=== PATIENT | female | born 1965 | race Caucasian/White ===

== ENCOUNTER → 2017-04-09 07:19 | Outpatient (CLI) | payer MEDICARE | LOC: D.RAD 01-29 09:30 → D.MRI 02-01 10:30 → D.RAD 02-05 08:30 → D.MRI 02-05 09:00 → D.RAD 02-12 08:30 | DX: S43.491A Other sprain of right shoulder joint, initial encounter (principal); X58.XXXA Exposure to other specified factors, initial encounter; Y93.89 Activity, other specified; Y92.89 Other specified places as the place of occurrence of the external cause ==

== ENCOUNTER 2018-02-10 19:11 | Emergency (ER) | payer OTHER ==
[2018-02-10 19:35] LABS: BASOPHILS 0.1 % (0-2); EOSINOPHILS 1.2 % (0-7); HEMATOCRIT 35.5 % (36.0-48.0); HEMOGLOBIN 11.6 g/dL (12-16); IMMATURE GRANULOCYTES 0.1 % (0-5); LYMPHOCYTES 20.2 % (15-50); MCH 31.9 pg (26.0-34.0); MCHC 32.7 g/dL (31.0-37.0); MCV 97.5 fL (80.0-100.0); MEAN PLATELET VOLUME 9.8 fL (7.4-10.4); MONOCYTES 8.2 % (2-11); NEUTROPHILS 70.2 % (40-80); PLATELET COUNT 190 10x3/uL (130-400); RBC 3.64 10x6/uL (4.00-5.40); RDW 13.2 % (11.5-14.5); WBC 8.1 10x3/uL (4.8-10.8)
[2018-02-10 19:59] LABS: ALBUMIN 3.7 g/dL (3.4-5.0); ALKALINE PHOSPHATASE 104 U/L (46-116); ALT (SGPT) 16 U/L (10-68); BILIRUBIN - TOTAL 0.47 mg/dL (0.2-1.3); CALC OSMOLALITY 277 mosm/kg (275-300); CALCIUM 8.6 mg/dL (8.5-10.1); CARBON DIOXIDE 23.4 mmol/L (21.0-32.0); CHLORIDE - SERUM 106 mmol/L (98-107); CREATININE - SERUM 0.8 mg/dL (0.6-1.3); GLUCOSE 91 mg/dL (74-106); POTASSIUM - SERUM 3.4 mmol/L (3.5-5.1); PROTEIN - SERUM 7.1 g/dL (6.4-8.2); SODIUM 140 mmol/L (136-145); UREA NITROGEN 11 mg/dL (7-18); eGFR NON AFRICAN AMERICAN 80 mL/min (90-120)
[2018-02-10 20:23] LABS: APPEARANCE SLT CLOUDY (CLEAR); BILIRUBIN NEGATIVE (NEGATIVE); COLOR DK YELLOW (YELLOW); GLUCOSE NEGATIVE (NEGATIVE); KETONE MODERATE mg/dL (NEGATIVE); NITRITE NEGATIVE (NEGATIVE); PROTEIN NEGATIVE (NEGATIVE); SPECIFIC GRAVITY 1.015 (1.005-1.020); UROBILINOGEN NORMAL (NORMAL)
[2018-02-10 20:31] LABS: BACTERIA FEW /hpf (NONE SEEN); MUCUS <1+ /lpf (NONE SEEN); WHITE CELLS - URINE 0-5 /hpf (0-5)
[2018-04-27] MEDS ORDERED: SYNTHROID50 MCG PO (08:53)
[2018-04-27] MEDS ORDERED: PROVIGIL200 MG PO (08:53)
[2018-04-27] MEDS ORDERED: GABAPENTIN100 MG PO (08:53)
[2018-04-27] MEDS ORDERED: IMITREX100 MG PO (08:53)
[2018-04-27] MEDS ORDERED: TENEX1 MG PO (08:54)
[2018-04-27] MEDS ORDERED: SINGULAIR10 MG PO (08:54)
[2018-04-27] MEDS ORDERED: PULMICORT180 MCG/AE INH (08:54)
[2018-04-27] MEDS ORDERED: TRAZODONE HCL150 MG PO (08:55)
[2018-04-27] MEDS ORDERED: TOPAMAX100 MG PO (08:55)
[2018-04-27] MEDS ORDERED: BUPROPION XL300 MG PO (08:55)
[2018-04-27] MEDS ORDERED: MULTIPLE VITAMI1 TA1 PO (08:56)
[2018-04-27] MEDS ORDERED: FLAXSEED OIL1000 MG PO (08:56)
[2018-04-27] MEDS ORDERED: VITAMIN E400 UNI2 PO (08:56)
[2018-04-27] MEDS ORDERED: COMBIVENT RESPIM4 GM INH (08:58)
[2018-04-28 11:11] VITALS: BMI 27.0
== END 2018-02-10 23:15 | disposition home or self-care (01) ==
LOC: D.ER 19:11
PROVIDERS: Family Medicine
DX: R10.32 Left lower quadrant pain (principal); N39.0 Urinary tract infection, site not specified; K57.90 Diverticulosis of intestine, part unspecified, without perforation or abscess without bleeding

== ENCOUNTER 2018-03-04 20:57 | Emergency (ER) | payer OTHER ==
[2018-04-27] MEDS ORDERED: PROVIGIL200 MG PO (08:53)
[2018-04-27] MEDS ORDERED: GABAPENTIN100 MG PO (08:53)
[2018-04-27] MEDS ORDERED: SYNTHROID50 MCG PO (08:53)
[2018-04-27] MEDS ORDERED: IMITREX100 MG PO (08:53)
[2018-04-27] MEDS ORDERED: TENEX1 MG PO (08:54)
[2018-04-27] MEDS ORDERED: PULMICORT180 MCG/AE INH (08:54)
[2018-04-27] MEDS ORDERED: SINGULAIR10 MG PO (08:54)
[2018-04-27] MEDS ORDERED: BUPROPION XL300 MG PO (08:55)
[2018-04-27] MEDS ORDERED: TRAZODONE HCL150 MG PO (08:55)
[2018-04-27] MEDS ORDERED: TOPAMAX100 MG PO (08:55)
[2018-04-27] MEDS ORDERED: FLAXSEED OIL1000 MG PO (08:56)
[2018-04-27] MEDS ORDERED: MULTIPLE VITAMI1 TA1 PO (08:56)
[2018-04-27] MEDS ORDERED: VITAMIN E400 UNI2 PO (08:56)
[2018-04-27] MEDS ORDERED: COMBIVENT RESPIM4 GM INH (08:58)
[2018-04-28 11:11] VITALS: BMI 27.0
== END 2018-03-05 00:41 | disposition home or self-care (01) ==
LOC: D.ER 20:57
DX: S16.1XXA Strain of muscle, fascia and tendon at neck level, initial encounter (principal); V49.9XXA Car occupant (driver) (passenger) injured in unspecified traffic accident, initial encounter; Y93.89 Activity, other specified; Y92.410 Unspecified street and highway as the place of occurrence of the external cause; S39.012A Strain of muscle, fascia and tendon of lower back, initial encounter; S00.83XA Contusion of other part of head, initial encounter

== ENCOUNTER 2018-04-03 20:31 | Emergency (ER) | payer OTHER ==
[2018-04-27] MEDS ORDERED: PROVIGIL200 MG PO (08:53)
[2018-04-27] MEDS ORDERED: SYNTHROID50 MCG PO (08:53)
[2018-04-27] MEDS ORDERED: IMITREX100 MG PO (08:53)
[2018-04-27] MEDS ORDERED: GABAPENTIN100 MG PO (08:53)
[2018-04-27] MEDS ORDERED: PULMICORT180 MCG/AE INH (08:54)
[2018-04-27] MEDS ORDERED: SINGULAIR10 MG PO (08:54)
[2018-04-27] MEDS ORDERED: TENEX1 MG PO (08:54)
[2018-04-27] MEDS ORDERED: TOPAMAX100 MG PO (08:55)
[2018-04-27] MEDS ORDERED: TRAZODONE HCL150 MG PO (08:55)
[2018-04-27] MEDS ORDERED: BUPROPION XL300 MG PO (08:55)
[2018-04-27] MEDS ORDERED: VITAMIN E400 UNI2 PO (08:56)
[2018-04-27] MEDS ORDERED: MULTIPLE VITAMI1 TA1 PO (08:56)
[2018-04-27] MEDS ORDERED: FLAXSEED OIL1000 MG PO (08:56)
[2018-04-27] MEDS ORDERED: COMBIVENT RESPIM4 GM INH (08:58)
[2018-04-28 11:11] VITALS: BMI 27.0
== END 2018-04-03 22:12 | disposition home or self-care (01) ==
LOC: D.ER 20:31
DX: S43.004A Unspecified dislocation of right shoulder joint, initial encounter (principal); W19.XXXA Unspecified fall, initial encounter; Y93.89 Activity, other specified; Y92.019 Unspecified place in single-family (private) house as the place of occurrence of the external cause

== ENCOUNTER 2018-04-03 20:41 | Emergency (ER) | payer OTHER ==
[2018-04-27] MEDS ORDERED: GABAPENTIN100 MG PO (08:53)
[2018-04-27] MEDS ORDERED: PROVIGIL200 MG PO (08:53)
[2018-04-27] MEDS ORDERED: SYNTHROID50 MCG PO (08:53)
[2018-04-27] MEDS ORDERED: IMITREX100 MG PO (08:53)
[2018-04-27] MEDS ORDERED: TENEX1 MG PO (08:54)
[2018-04-27] MEDS ORDERED: SINGULAIR10 MG PO (08:54)
[2018-04-27] MEDS ORDERED: PULMICORT180 MCG/AE INH (08:54)
[2018-04-27] MEDS ORDERED: TOPAMAX100 MG PO (08:55)
[2018-04-27] MEDS ORDERED: TRAZODONE HCL150 MG PO (08:55)
[2018-04-27] MEDS ORDERED: BUPROPION XL300 MG PO (08:55)
[2018-04-27] MEDS ORDERED: MULTIPLE VITAMI1 TA1 PO (08:56)
[2018-04-27] MEDS ORDERED: FLAXSEED OIL1000 MG PO (08:56)
[2018-04-27] MEDS ORDERED: VITAMIN E400 UNI2 PO (08:56)
[2018-04-27] MEDS ORDERED: COMBIVENT RESPIM4 GM INH (08:58)
[2018-04-28 11:11] VITALS: BMI 27.0
== END 2018-04-03 22:12 | disposition home or self-care (01) ==
LOC: D.ER 20:41
DX: S43.101A Unspecified dislocation of right acromioclavicular joint, initial encounter (principal); W01.0XXA Fall on same level from slipping, tripping and stumbling without subsequent striking against object, initial encounter; Y93.89 Activity, other specified; Y92.019 Unspecified place in single-family (private) house as the place of occurrence of the external cause

== ENCOUNTER → 2018-04-07 08:26 | Outpatient (CLI) | payer OTHER ==
[~2018-04-07 08:26] MED LIST: BUPROPION XL300 MG PO; COMBIVENT RESPIM4 GM INH; FLAXSEED OIL1000 MG PO; GABAPENTIN100 MG PO; IMITREX100 MG PO; MULTIPLE VITAMI1 TA1 PO; PERCOCET 10/3251 TA1 PO; PROVIGIL200 MG PO; PULMICORT180 MCG/AE INH; SINGULAIR10 MG PO; SYNTHROID50 MCG PO; TENEX1 MG PO; TOPAMAX100 MG PO; TRAZODONE HCL150 MG PO; VITAMIN E400 UNI2 PO
[2018-04-28 11:11] VITALS: BMI 27.0
== END | disposition home or self-care (01) ==
LOC: D.MRI 08:26
DX: M25.511 Pain in right shoulder (principal)

== ENCOUNTER 2018-04-28 10:20 | Day surgery (SDC) | payer OTHER ==
[2018-04-27 09:44] LABS: HEMATOCRIT 35.7 % (36.0-48.0); HEMOGLOBIN 11.8 g/dL (12-16); MCH 31.8 pg (26.0-34.0); MCHC 33.1 g/dL (31.0-37.0); MCV 96.2 fL (80.0-100.0); MEAN PLATELET VOLUME 9.6 fL (7.4-10.4); RBC 3.71 10x6/uL (4.00-5.40); RDW 13.7 % (11.5-14.5); WBC 5.8 10x3/uL (4.8-10.8)
[~2018-04-28] VITALS: Ht 165.1 cm; Wt 73.5 kg
--- NOTE | ~2018-04-28 | OP ---
PATIENT NAME: MARA BELLO MEDICAL RECORD: [id number] :65 LOCATION:D.OPS ADMISSION DATE: SURGEON: ROSALIA BRADLEY MD DATE OF OPERATION: 04/28/2018 PREOPERATIVE DIAGNOSES: 1. Impingement of the right shoulder. 2. SLAP lesion of the right shoulder. 3. Grade III AC separation of the right shoulder. POSTOPERATIVE DIAGNOSES: 1. Impingement of the right shoulder. 2. SLAP lesion of the right shoulder. 3. Grade III AC separation of the right shoulder. PROCEDURES: 1. Open acromioclavicular joint reconstruction. 2. Arthroscopic subacromial decompression, right shoulder. SURGEON: Rosalia Bradley MD ANESTHESIA: General. INTRAOPERATIVE COMPLICATIONS: None. SUMMARY OF PATHOLOGIC FINDINGS: Essentially, the patient did not have a SLAP lesion or rotator cuff tear, although the patient was found to have substantial type 3 acromion with excoriation of coracoacromial ligament and substantially dislocated, displaced AC joint. AC joint was fixed with the Arthrex subcoracoid and clavicular dog bone technique. OPERATIVE SUMMARY IN DETAIL: After obtaining the appropriate preoperative orthopaedic surgery consent as well as anesthetic consultation, evaluation, and clearance, the patient was brought to the operating room and placed on the operating table in supine position. After adequate general laryngeal mask airway was administered, the patient was placed in left lateral decubitus position. All pressure points were well padded to include down leg peroneal pad as well as axillary roll. The patient was held firmly to the operating table using the vacuum pack suction system. Right upper extremity and shoulder were then prepped and draped in routine sterile fashion. The arm was held in the Arthrex traction boom at 30 degrees of forward flexion, 30 degrees of abduction, and 10 pounds of traction laterally. Arthroscopy was established in the glenohumeral joint from posterior portal. Anterior portal was established in the anterior safe interval. Diagnostic arthroscopy did not show a SLAP lesion or undersurface rotator cuff tear. Attention was turned to the subacromial space. While in the subacromial space, surface tissue ablation system was set up to an accessory lateral portal to denude the undersurface of the acromion of all soft tissue elements. A 5-0 barrel bur was used for acromioplasty at the level of the acromioclavicular joint. Having completed this, an incision was made over the acromioclavicular joint. Dissection was carried around the clavicle and down to the subcoracoid recess. The cannulated drill and pin were placed through the coracoid, then passing the nitinol wire through this. The 2 tails of the dog bone were passed through the coracoid and the dog bone was seated securely under the coracoid. Second drill hole was then made to the clavicle again with cannulated drill from Arthrex. Nitinol wire was then used OPERATIVE REPORT [id number] MARA BELLO to pass these FiberTape sutures through. Distal clavicle was excised arthroscopically. A small extra amount was excised to make the AC joint seat nicely. This was then held with reduction clamps, tied down, and the AC joint seated nicely. The clamps were removed. Wound was copiously irrigated. Capsule about the AC joint was reapproximated with #2 FiberWire. This was then followed by #1 Vicryl, 2-0 Vicryl, and skin qing. Sterile dressings were applied. The patient was awakened. LMA was removed. She was taken to recovery room in stable condition. All final sponge and needle counts were correct. TRANSINT:[id number] Voice Confirmation ID: [id number] DOCUMENT ID: [id number] ROSALIA BRADLEY MD at 1737 CC: [id number] DICTATION DATE: 04/28/18 1442 ANESTHESIA TECHNICIAN: 04/28/18 1529 [id number] [place] [address]
[~2018-04-28 10:20] MED LIST changes: -PERCOCET 10/3251 TA1 PO
[2018-04-28 11:11] VITALS: BP 108/61; Ht 165.1 cm; Wt 73.5 kg
[2018-04-28] MEDS ORDERED: PERCOCET 10/3251 TA1 PO (14:36)
== END 2018-04-28 17:05 | disposition home or self-care (01) ==
LOC: D.OPS 10:20 → D.PAN 13:00 → D.OPS 13:00
PROVIDERS: Anesthesiology
DX: M75.41 Impingement syndrome of right shoulder (principal); S43.101A Unspecified dislocation of right acromioclavicular joint, initial encounter; Z01.812 Encounter for preprocedural laboratory examination

== ENCOUNTER 2018-06-27 18:45 | Emergency (ER) | payer OTHER ==
[~2018-06-27] VITALS: Ht 165.1 cm; Wt 68.2 kg
[~2018-06-27 18:45] MED LIST changes: +PERCOCET 10/3251 TA1 PO
[2018-06-27 18:50] VITALS: Ht 165.1 cm; Wt 68.2 kg
[2018-06-27] MEDS ORDERED: [UNRECOGNIZED DRUG - OTHER] (18:52)
[2018-06-27 19:19] LABS: BASOPHILS 0.3 % (0-2); EOSINOPHILS 1.7 % (0-7); HEMATOCRIT 35.7 % (36.0-48.0); HEMOGLOBIN 11.6 g/dL (12-16); LYMPHOCYTES 36.3 % (15-50); MCH 31.6 pg (26.0-34.0); MCHC 32.5 g/dL (31.0-37.0); MCV 97.3 fL (80.0-100.0); MEAN PLATELET VOLUME 10.5 fL (7.4-10.4); NEUTROPHILS 53.7 % (40-80); PLATELET COUNT 204 10x3/uL (130-400); RBC 3.67 10x6/uL (4.00-5.40); RDW 13.5 % (11.5-14.5)
[2018-06-27 19:28] LABS: APPEARANCE HAZY (CLEAR); BACTERIA FEW /hpf (NONE SEEN); BILIRUBIN NEGATIVE (NEGATIVE); COLOR DK YELLOW (YELLOW); GLUCOSE NEGATIVE (NEGATIVE); KETONE NEGATIVE (NEGATIVE); MUCUS >1+ /lpf (NONE SEEN); NITRITE NEGATIVE (NEGATIVE); PROTEIN NEGATIVE (NEGATIVE); RED CELLS - URINE 25-50 /hpf (0-5); UROBILINOGEN NORMAL (NORMAL); WHITE CELLS - URINE 0-5 /hpf (0-5)
[2018-06-27 19:34] LABS: ALBUMIN 3.5 g/dL (3.4-5.0); ALKALINE PHOSPHATASE 92 U/L (46-116); ALT (SGPT) 18 U/L (10-68); BILIRUBIN - TOTAL 0.45 mg/dL (0.2-1.3); CALC OSMOLALITY 278 mosm/kg (275-300); CALCIUM 8.6 mg/dL (8.5-10.1); CARBON DIOXIDE 26.2 mmol/L (21.0-32.0); CHLORIDE - SERUM 109 mmol/L (98-107); CREATININE - SERUM 0.7 mg/dL (0.6-1.3); GLUCOSE 97 mg/dL (74-106); PROTEIN - SERUM 6.7 g/dL (6.4-8.2); SODIUM 141 mmol/L (136-145); UREA NITROGEN 8 mg/dL (7-18); eGFR NON AFRICAN AMERICAN > 90 mL/min (90-120)
[2018-06-27] MEDS ORDERED: LEVSIN/ANASP0.125 MG PO (23:21)
[2018-06-28 00:02] VITALS: BP 124/72
== END 2018-06-27 23:48 | disposition home or self-care (01) ==
LOC: D.ER 18:45
PROVIDERS: Family Medicine
DX: R10.32 Left lower quadrant pain (principal); R31.9 Hematuria, unspecified

== ENCOUNTER 2018-06-30 10:20 | Emergency (ER) | payer OTHER ==
[~2018-06-30] VITALS: Ht 165.1 cm; Wt 68.0 kg
[~2018-06-30 10:20] MED LIST changes: +LEVSIN/ANASP0.125 MG PO; +[UNRECOGNIZED DRUG - OTHER]
[2018-06-30 10:24] VITALS: Ht 165.1 cm; Wt 68.0 kg
[2018-06-30 11:03] LABS: BASOPHILS 0.1 % (0-2); EOSINOPHILS 0.4 % (0-7); HEMATOCRIT 36.9 % (36.0-48.0); HEMOGLOBIN 12.1 g/dL (12-16); IMMATURE GRANULOCYTES 0.2 % (0-5); LYMPHOCYTES 11.5 % (15-50); MCH 31.9 pg (26.0-34.0); MCHC 32.8 g/dL (31.0-37.0); MCV 97.4 fL (80.0-100.0); MEAN PLATELET VOLUME 10.7 fL (7.4-10.4); MONOCYTES 7.4 % (2-11); NEUTROPHILS 80.4 % (40-80); PLATELET COUNT 204 10x3/uL (130-400); RBC 3.79 10x6/uL (4.00-5.40); RDW 13.5 % (11.5-14.5); WBC 10.2 10x3/uL (4.8-10.8)
[2018-06-30 11:12] LABS: COLOR ORANGE RED (YELLOW)
[2018-06-30 11:13] LABS: AMORPHOUS SEDIMENT <1+ /lpf (NONE SEEN); APPEARANCE HAZY (CLEAR); BACTERIA FEW /hpf (NONE SEEN); EPITHELIAL CELLS 0-5 /hpf (0-5); MUCUS >1+ /lpf (NONE SEEN); URIC ACID CRYSTALS OCC /hpf (NONE SEEN); WHITE CELLS - URINE OCC /hpf (0-5)
[2018-06-30 11:26] LABS: ALBUMIN 3.6 g/dL (3.4-5.0); ALKALINE PHOSPHATASE 90 U/L (46-116); ALT (SGPT) 20 U/L (10-68); AMYLASE - SERUM 30 U/L (25-115); BILIRUBIN - TOTAL 0.38 mg/dL (0.2-1.3); CALC OSMOLALITY 285 mosm/kg (275-300); CALCIUM 8.6 mg/dL (8.5-10.1); CARBON DIOXIDE 28.3 mmol/L (21.0-32.0); CHLORIDE - SERUM 109 mmol/L (98-107); CREATININE - SERUM 0.8 mg/dL (0.6-1.3); GLUCOSE 102 mg/dL (74-106); LIPASE 79 U/L (73-393); POTASSIUM - SERUM 3.3 mmol/L (3.5-5.1); PROTEIN - SERUM 6.8 g/dL (6.4-8.2); SODIUM 144 mmol/L (136-145); UREA NITROGEN 10 mg/dL (7-18); eGFR NON AFRICAN AMERICAN 79 mL/min (90-120)
[2018-06-30] MEDS ORDERED: FLOMAX0.4 MG PO (14:13)
[2018-06-30] MEDS ORDERED: TALWIN NX1 TAB PO (14:13)
[2018-06-30 15:02] VITALS: BP 118/57
== END 2018-06-30 15:03 | disposition home or self-care (01) ==
LOC: D.ER 10:20
PROVIDERS: Family Medicine
DX: R10.32 Left lower quadrant pain (principal); R11.2 Nausea with vomiting, unspecified; E07.9 Disorder of thyroid, unspecified

== ENCOUNTER → 2018-07-13 11:18 | Outpatient (CLI) | payer OTHER ==
[2018-06-30 10:24] VITALS: BMI 25.0
[~2018-07-13 11:18] MED LIST changes: +FLOMAX0.4 MG PO; +TALWIN NX1 TAB PO
== END | disposition home or self-care (01) ==
LOC: D.CT 11:18
DX: M25.511 Pain in right shoulder (principal); N20.0 Calculus of kidney

== ENCOUNTER → 2018-12-06 08:03 | Outpatient (CLI) | payer OTHER ==
[2018-06-30 10:24] VITALS: BMI 25.0
== END | disposition home or self-care (01) ==
LOC: D.MRI 08:00
DX: M25.511 Pain in right shoulder (principal)

== ENCOUNTER → 2019-07-06 07:38 | Outpatient (CLI) | payer OTHER ==
[2018-06-30 10:24] VITALS: BMI 25.0
== END | disposition home or self-care (01) ==
LOC: D.MRI 07:38
PROVIDERS: ATTEND Orthopaedic Surgery
DX: M87.851 Other osteonecrosis, right femur (principal); M87.052 Idiopathic aseptic necrosis of left femur

== ENCOUNTER 2019-12-21 10:10 | Day surgery (SDC) | payer OTHER ==
[2019-12-20 08:48] LABS: HEMATOCRIT 38.1 % (36.0-48.0); HEMOGLOBIN 12.3 g/dL (12-16); MCH 31.7 pg (26.0-34.0); MCHC 32.3 g/dL (31.0-37.0); MCV 98.2 fL (80.0-100.0); MEAN PLATELET VOLUME 9.3 fL (7.4-10.4); RBC 3.88 10x6/uL (4.00-5.40); RDW 13.1 % (11.5-14.5); WBC 5.1 10x3/uL (4.8-10.8)
[~2019-12-21] VITALS: Ht 165.1 cm; Wt 72.6 kg
[~2019-12-21 10:10] MED LIST changes: +EMGALITY SO
[2019-12-21 10:32] VITALS: BP 102/58; Ht 165.1 cm; Wt 72.6 kg
[2019-12-21] MEDS ORDERED: HYDROCODON-ACE1 EA10 PO (11:52)
--- NOTE | 2019-12-21 13:31 | NUR ---
PT ATTEMPTED OVERDOSE 19 YEARS AGO PRIOR TO GETTING ON CORRECT ANTIDEPRESSANT MEDICATIONS. PT DENIES SI AND IS TAKING HER MEDICATIONS. PT IS A LOW RISK PER ASSESSMENT. RESOURCES GIVEN AND PT VERBALIZED UNDERSTANDING.
--- NOTE | 2019-12-21 16:26 | NUR ---
1418 IV DC'D. CATHETER TIP INTACT. NO BLEEDING AT SITE. BANDAID APPLIED.
--- NOTE | 2019-12-24 10:02 | OP ---
PATIENT NAME: MARA BELLO MEDICAL RECORD: [id number] :65 LOCATION:D.OPS ADMISSION DATE: SURGEON: ROSALIA BRADLEY MD DATE OF OPERATION: 12/21/2019 PREOPERATIVE DIAGNOSIS: Painful hardware of the right shoulder - acromioclavicular joint reconstruction button from Arthrex. POSTOPERATIVE DIAGNOSIS: Painful hardware of the right shoulder - acromioclavicular joint reconstruction button from Arthrex. PROCEDURE: Removal of painful hardware, right shoulder - clavicle. SURGEON: Rosalia Bradley MD ANESTHESIA: General. LENS BLOCK GAUGER: CHERELLE Johns. INTRAOPERATIVE COMPLICATIONS: None. SUMMARY OF PATHOLOGIC FINDINGS: As was expected, this is an implant that has been in for about 18 months and it was very irritating this thin lady across her clavicle including the knot stack as well as the button. These were removed. OPERATIVE SUMMARY IN DETAIL: After obtaining the appropriate preoperative orthopedic surgery consent as well as anesthetic consultation, evaluation and clearance, the patient was brought to the operating room and placed on the operating table in supine position. After adequate general laryngeal mask airway was administered, the patient's right clavicle and shoulder area were prepped and draped in routine sterile fashion after the appropriate timeout was taken and agreed upon by all. A small incision was made and taken directly down to the knot stack, which was cut off sharply with a scalpel and then the dog bone was easily removed with a small rongeur. A small bony prominence was smoothened down likewise. The wound was then irrigated and closed with 2-0 Vicryl followed by 4-0 Prolene. The area was locally infiltrated with 0.25% Marcaine plain. Sterile dressings were applied. The patient was awakened and taken to recovery room in stable condition. All final needle and sponge count was correct. TRANSINT:[id number] Voice Confirmation ID: [id number] DOCUMENT ID: [id number] KIRK SORENSON, ROSALIA VARGAS at 1002 CC: [id number] DICTATION DATE: 12/21/19 1159 KENNEL TECHNICIAN: 12/21/19 1552 [facility] 12/21/19 [place] [address]
== END 2019-12-21 14:29 | disposition home or self-care (01) ==
LOC: D.OPS 10:10 → D.PAN 10:45 → D.OPS 10:45
PROVIDERS: Anesthesiology; ATTEND Orthopaedic Surgery
DX: M25.511 Pain in right shoulder (principal); M20.11 Hallux valgus (acquired), right foot; M25.551 Pain in right hip; M25.552 Pain in left hip; Z97.8 Presence of other specified devices

== ENCOUNTER 2020-07-03 08:06 | Emergency (ER) | payer OTHER ==
[~2020-07-03] VITALS: Ht 165.1 cm; Wt 72.7 kg
[~2020-07-03 08:06] MED LIST changes: +HYDROCODON-ACE1 EA10 PO
[2020-07-03 08:15] VITALS: BP 109/63; Ht 165.1 cm; Wt 72.7 kg
[2020-07-03] MEDS ORDERED: MYCOSTATIN500000 UNI PO (08:41)
[2020-07-03] MEDS ORDERED: AUGMENTIN 875-11 TAB PO (08:41)
== END 2020-07-03 09:52 | disposition home or self-care (01) ==
LOC: D.ER 08:06
DX: S61.432A Puncture wound without foreign body of left hand, initial encounter (principal); E07.9 Disorder of thyroid, unspecified; J45.909 Unspecified asthma, uncomplicated; W22.8XXA Striking against or struck by other objects, initial encounter; Y93.9 Activity, unspecified; Y92.9 Unspecified place or not applicable

== ENCOUNTER 2020-09-18 10:58 | Emergency (ER) | payer OTHER ==
[~2020-09-18] VITALS: Ht 165.1 cm; Wt 72.7 kg
[~2020-09-18 10:58] MED LIST changes: +AUGMENTIN 875-11 TAB PO; +MYCOSTATIN500000 UNI PO
[2020-09-18 11:02] VITALS: Ht 165.1 cm; Wt 72.7 kg
[2020-09-18 11:36] LABS: BASOPHILS 0.4 % (0-2); EOSINOPHILS 2.7 % (0-7); HEMATOCRIT 36.8 % (36.0-48.0); HEMOGLOBIN 12.1 g/dL (12-16); LYMPHOCYTES 35.9 % (15-50); MCH 31.5 pg (26.0-34.0); MCHC 32.9 g/dL (31.0-37.0); MCV 95.8 fL (80.0-100.0); MEAN PLATELET VOLUME 9.1 fL (7.4-10.4); MONOCYTES 10.7 % (2-11); NEUTROPHILS 50.3 % (40-80); PLATELET COUNT 196 10x3/uL (130-400); RBC 3.84 10x6/uL (4.00-5.40); RDW 12.8 % (11.5-14.5); WBC 4.8 10x3/uL (4.8-10.8)
[2020-09-18 11:48] LABS: APTT 29.9 SECONDS (22.8-39.4); INR 1.03 (0.85-1.17); PROTIME 13.5 SECONDS (11.6-15.0)
[2020-09-18 11:49] LABS: D-DIMER-QUANTITATIVE 0.35 ug/mLFEU (0.20-0.54)
[2020-09-18 11:53] LABS: CALC OSMOLALITY 278 mosm/kg (275-300); CALCIUM 8.3 mg/dL (8.5-10.1); CARBON DIOXIDE 29.3 mmol/L (21.0-32.0); CHLORIDE - SERUM 107 mmol/L (98-107); CREATININE - SERUM 0.7 mg/dL (0.6-1.3); GLUCOSE 95 mg/dL (74-106); POTASSIUM - SERUM 3.8 mmol/L (3.5-5.1); SODIUM 139 mmol/L (136-145); UREA NITROGEN 16 mg/dL (7-18); eGFR NON AFRICAN AMERICAN > 90 mL/min (90-120)
[2020-09-18 12:00] LABS: ALBUMIN 3.4 g/dL (3.4-5.0); ALKALINE PHOSPHATASE 112 U/L (30-120); ALT (SGPT) 21 U/L (10-68); BILIRUBIN - TOTAL 0.25 mg/dL (0.2-1.3); CKMB 0.2 U/L (0.0-3.6); CREATINE KINASE 49 UL (21-215); MAGNESIUM - SERUM 2.3 mg/dL (1.8-2.4); PROTEIN - SERUM 6.5 g/dL (6.4-8.2)
[2020-09-18 12:01] LABS: TROPONIN-I < 0.017 ng/mL (0.000-0.060)
[2020-09-18] MEDS ORDERED: HYDROCODON-ACE1 EAC7 PO (14:18)
[2020-09-18] MEDS ORDERED: MEDROL DOSE PACK4 MG PO (14:18)
[2020-09-18 14:37] VITALS: BP 118/65
== END 2020-09-18 14:37 | disposition home or self-care (01) ==
LOC: D.ER 10:58
PROVIDERS: Emergency Medicine
DX: R07.89 Other chest pain (principal); J45.909 Unspecified asthma, uncomplicated